=== PATIENT | female | born 1960 | race Caucasian/White ===

== ENCOUNTER → 2018-02-06 | Outpatient (CLI) | payer MEDICARE ==
[~2018-02-06] MED LIST: ATIVAN1 MG PO; Bactrim Ds 8001 TAB PO; CARAFATE1 G1 PO; CLINDAMYCIN HC300 MG PO; CLONAZEPAM1 M1 PO; CLONAZEPAM1 MG PO; CYMBALTA60 MG PO; DARVOCET N 1001 TAB PO; EFFEXOR XR150 MG PO; EFFEXOR XR75 M2; EFFEXOR XR75 MG PO; EFFEXOR-XR150 MG PO; FLEXERIL10 MG; FLEXERIL10 MG PO; FLEXERIL5 MG PO; GABAPENTIN100 M2 PO; HYDROCODONE BIT1 T11 PO; KEFLEX500 MG PO; KLONOPIN1 M1 PO; MEDROL DOSEPAK4 MG PO; MOBIC7.5 MG PO; NEURONTIN800 MG PO; NORFLEX100 MG PO; NOVAPLUS V0.09 MG/Ac INH; OLANZAPINE2.5 MG PO; PHENERGAN W/ DE30 ML PO; PREDNICOT10 MG PO; PREDNICOT20 MG PO; PREDNISONE10 MG PO; PRILOSEC20 M1 PO; PRILOSEC40 MG PO; PROAIR HFA0.09 MG/AC INH; PROTONIX40 MG PO; SOMA PO; TRAMADOL HCL50 MG PO; TYLENOL EXTRA500 MG PO; VIBRAMYCIN100 MG PO; VICODIN 5/500 505 MG PO; VICODIN ES 7501 TAB PO; VISTARIL25 MG PO; ZESTRIL20 MG PO; ZESTRIL40 MG PO; ZITHROMAX250 MG PO
== END | disposition home or self-care (01) ==
LOC: ORTHO 03:00
DX: M25.512 Pain in left shoulder (principal)

== ENCOUNTER → 2018-02-11 | Outpatient (CLI) | payer MEDICARE | END | disposition home or self-care (01) | LOC: MRI 08:44 | DX: M25.519 Pain in unspecified shoulder (principal); M75.100 Unspecified rotator cuff tear or rupture of unspecified shoulder, not specified as traumatic ==

== ENCOUNTER → 2021-01-03 | Outpatient (CLI) | payer MEDICARE | END | disposition home or self-care (01) | LOC: RAD 12:40 | PROVIDERS: ATTEND Family Medicine | DX: M17.11 Unilateral primary osteoarthritis, right knee (principal) ==

== ENCOUNTER → 2021-01-24 | Outpatient (CLI) | payer MEDICARE | END | disposition home or self-care (01) | LOC: CARD 11:26 | PROVIDERS: ATTEND Family Medicine | DX: I44.4 Left anterior fascicular block (principal); Z79.899 Other long term (current) drug therapy ==

== ENCOUNTER → 2021-09-21 | Outpatient (CLI) | payer MEDICARE | END | disposition home or self-care (01) | LOC: RAD 12:19 | PROVIDERS: ATTEND Family Medicine | DX: R10.12 Left upper quadrant pain (principal) ==

== ENCOUNTER → 2021-09-27 | Outpatient (CLI) | payer MEDICARE | END | disposition home or self-care (01) | LOC: CT 12:18 | PROVIDERS: ATTEND Family Medicine | DX: K52.9 Noninfective gastroenteritis and colitis, unspecified (principal) ==

== ENCOUNTER → 2021-10-13 | Day surgery (SDC) | payer MEDICARE ==
[~2021-10-13] VITALS: Ht 167.6 cm; Wt 72.6 kg
[~2021-10-13] MED LIST changes: +BUSPAR15 MG PO; +MEDICAL MARIJUANA; +NEXIUM20 M1 PO
[2021-10-13 08:43] VITALS: BP 129/66
[2021-10-13 09:48] VITALS: BP 123/69
[2021-10-13 10:04] VITALS: BP 120/70
[2021-10-13 10:24] VITALS: BP 123/69
== END | disposition home or self-care (01) ==
LOC: SDC 10-10 12:30
PROVIDERS: ATTEND Surgery
DX: R19.4 Change in bowel habit (principal); D12.3 Benign neoplasm of transverse colon; D12.0 Benign neoplasm of cecum; K29.50 Unspecified chronic gastritis without bleeding; K20.90 Esophagitis, unspecified without bleeding; I10 Essential (primary) hypertension; F32.9 Major depressive disorder, single episode, unspecified; F41.9 Anxiety disorder, unspecified; K21.9 Gastro-esophageal reflux disease without esophagitis; J44.9 Chronic obstructive pulmonary disease, unspecified; M79.7 Fibromyalgia; K44.9 Diaphragmatic hernia without obstruction or gangrene; Z20.822 Contact with and (suspected) exposure to COVID-19; Z79.899 Other long term (current) drug therapy

== ENCOUNTER → 2021-11-18 | Outpatient (CLI) | payer MEDICARE ==
[2021-11-18 09:32] LABS: CREATININE 0.69 mg/dL (0.55-1.02)
== END | disposition home or self-care (01) ==
LOC: CT 09:00
PROVIDERS: Radiology Diagnostic Radiology; ATTEND Physician Assistant Surgical
DX: K44.9 Diaphragmatic hernia without obstruction or gangrene (principal); R13.19 Other dysphagia; K22.711 Barrett's esophagus with high grade dysplasia

== ENCOUNTER → 2021-11-24 | Outpatient (CLI) | payer MEDICARE | END | disposition home or self-care (01) | LOC: RAD 00:57 | PROVIDERS: ATTEND Physician Assistant Surgical | DX: K21.9 Gastro-esophageal reflux disease without esophagitis (principal); K44.9 Diaphragmatic hernia without obstruction or gangrene; K22.711 Barrett's esophagus with high grade dysplasia; R13.19 Other dysphagia ==

== ENCOUNTER 2022-06-08 13:55 | Emergency (ER) | payer MEDICARE ==
[~2022-06-08] VITALS: Ht 167.6 cm; Wt 82.1 kg
[2022-06-08 15:05] VITALS: BP 128/62
[2022-06-08] MEDS ORDERED: VIBRAMYCIN100 MG PO (15:12)
[2022-06-08] MEDS ORDERED: PREDNISONE20 M1 PO (15:12)
== END 2022-06-08 15:24 | disposition home or self-care (01) ==
LOC: ED 13:55
DX: J44.1 Chronic obstructive pulmonary disease with (acute) exacerbation (principal); Z20.822 Contact with and (suspected) exposure to COVID-19; J11.1 Influenza due to unidentified influenza virus with other respiratory manifestations; Z79.899 Other long term (current) drug therapy; Z98.890 Other specified postprocedural states; Z90.49 Acquired absence of other specified parts of digestive tract

== ENCOUNTER 2024-12-09 08:32 | Emergency (ER) | payer MEDICARE ==
[~2024-12-09] VITALS: Ht 167.6 cm; Wt 77.1 kg
[~2024-12-09 08:32] MED LIST changes: +PREDNISONE20 M1 PO
[2024-12-09 08:41] VITALS: BP 118/63
[2024-12-09] MEDS ORDERED: ALBUTEROL HFA 90 MCG INH (09:21)
[2024-12-09] MEDS ORDERED: Albuterol Sulf/Ipratropium 3 ML VIAL NEB ONE ×2 (09:25→10:08)
[2024-12-09] MEDS ORDERED: predniSONE 20 MG TAB PO ONE (09:55)
[2024-12-09] MEDS ORDERED: Doxycycline Hyclate 100 MG CAPSULE PO ONE (09:55)
[2024-12-09] MEDS ORDERED: DOXYCYCLINE HY100 M3 PO (11:05)
[2024-12-09] MEDS ORDERED: PREDNISONE20 M1 PO (11:05)
== END 2024-12-09 11:43 | disposition home or self-care (01) ==
LOC: ED 08:32
DX: J44.1 Chronic obstructive pulmonary disease with (acute) exacerbation (principal); I10 Essential (primary) hypertension; K21.9 Gastro-esophageal reflux disease without esophagitis; F32.A Depression, unspecified; Z79.899 Other long term (current) drug therapy; Z90.49 Acquired absence of other specified parts of digestive tract; Z98.890 Other specified postprocedural states